=== PATIENT | male | born 1980 | race Hispanic/Latino ===

== ENCOUNTER 2017-09-19 08:02 | Outpatient (CLI) | payer BC ==
[2017-09-19 08:28] LABS: Hematocrit 43.4 % (35.5-45.6); Hemoglobin 14.6 gm/dl (11.8-15.2); Mean Corpuscular HGB Conc 34 % (32-34); Mean Corpuscular Hemoglobin 31 pg (28-32); Mean Corpuscular Volume 93 fl (84-94); Platelet Count 160 K/mm3 (140-440); Red Blood Count 4.65 M/mm3 (3.65-5.03)
[2017-09-19 08:54] LABS: Alanine Aminotransferase 16 units/L (7-56); BUN/Creatinine Ratio 14; Blood Urea Nitrogen 11 mg/dL (9-20); Calcium 8.9 mg/dL (8.4-10.2); Chol/HDL Ratio 2.75 %; HDL Cholesterol 49 mg/dL (40-59); Hemolysis Index 6; LDL Cholesterol,Direct 91 mg/dL (50-130)
== END 2017-09-19 08:03 | disposition home or self-care (01) ==
LOC: LAB 08:02
PROVIDERS: ATTEND Family Medicine
DX: Z00.01 Encounter for general adult medical examination with abnormal findings (principal); R79.89 Other specified abnormal findings of blood chemistry
CPT/HCPCS: 36415; 80053; 80061; 85027

== ENCOUNTER 2018-10-25 13:56 | Outpatient (CLI) | payer BC ==
[2018-10-25 14:15] LABS: Basophils # (Auto) 0.1 K/mm3 (0.0-0.1); Basophils % (Auto) 0.8 % (0.0-1.8); Eosinophils # (Auto) 0.2 K/mm3 (0.0-0.4); Hemoglobin 15.3 gm/dl (11.8-15.2); Lymphocytes # (Auto) 1.8 K/mm3 (1.2-5.4); Lymphocytes % (Auto) 21.8 % (13.4-35.0); Mean Corpuscular HGB Conc 34 % (32-34); Mean Corpuscular Volume 92 fl (84-94); Monocytes # (Auto) 0.4 K/mm3 (0.0-0.8); Monocytes % (Auto) 5.5 % (0.0-7.3); Platelet Count 205 K/mm3 (140-440); Red Blood Count 4.87 M/mm3 (3.65-5.03)
[2018-10-25 14:40] LABS: Alanine Aminotransferase 20 units/L (7-56); Albumin 4.4 g/dL (3.9-5); BUN/Creatinine Ratio 16; Blood Urea Nitrogen 14 mg/dL (9-20); Calcium 9.4 mg/dL (8.4-10.2); Chol/HDL Ratio 3.28 %; HDL Cholesterol 45 mg/dL (40-59); Hemolysis Index 7; LDL Cholesterol,Direct 111 mg/dL (50-130)
== END 2018-10-25 13:57 | disposition home or self-care (01) ==
LOC: LAB 13:56
PROVIDERS: ATTEND Family Medicine
DX: Z00.00 Encounter for general adult medical examination without abnormal findings (principal); R79.89 Other specified abnormal findings of blood chemistry
CPT/HCPCS: 36415; 80053; 80061; 84443; 85025

== ENCOUNTER 2019-01-28 15:10 | Emergency (ER) | payer BC ==
[2019-01-28 15:24] VITALS: BP 140/80
== END 2019-01-28 16:44 | disposition left against medical advice (07) ==
LOC: ED 15:10
DX: M54.5 Low back pain (principal); Z53.21 Procedure and treatment not carried out due to patient leaving prior to being seen by health care provider